=== PATIENT | female | born 1995 | race Caucasian/White ===

== ENCOUNTER 2024-01-11 16:54 | Inpatient (IN) | payer OTHER, SELFPAY ==
[2024-01-11] VITALS (20 sets, daily range): BP systolic 109–139; BP diastolic 58–87; PULSE 66–104; BMI 42.0
--- NOTE | 2024-01-11 17:20 | LDADM ---
This patient, Aline Marcus, was admitted to Labor/Delivery/Recovery 108 on 01/11/24 at 16:54. Plans for labor, pain management and were discussed with patient. Patient/family oriented to hospital policies and general routines including ID bracelet, bed and alarms, visiting hours, pain management, procedures, bathroom and other care routines, personal items, smoking policy, room service/diet and guest tray routines, infant security routines, and visiting hours. Patient/Family are encouraged to report perceived risks to care and to ask questions if they do not understand what they are told or what they should do. See OBIX for further documentation.
--- NOTE | 2024-01-11 17:29 | P.PNAN_ITS ---
Anes - Eval Pre Procedure Procedure: labor epidural Date/Time: 01/11/24 17:29 Pre Op Diagnosis: IOL Patient Data Age: 28 Gender: F Height: 1.75 m Weight: 129 kg Last Vital Signs Pulse 95 01/11/24 17:17 BP 129/59 L 01/11/24 17:17 O2 Del Method Room Air 01/11/24 17:18 Allergies Allergy/AdvReac Type Severity Reaction Status Date / Time No Known Allergies Allergy Verified 01/11/24 17:14 Home Medications Medication Instructions Recorded Confirmed Type buspirone 10 mg tablet 20 mg PO BID 12/27/23 12/27/23 History fluoxetine 20 mg capsule 80 mg PO DAILY 12/27/23 12/27/23 History hydroxyzine HCl 10 mg tablet 10 mg PRN Anxiety 12/27/23 History insulin NPH isoph U-100 human 100 8 unit subcut DAILY 12/27/23 01/11/24 History unit/mL subcutaneous suspension (Humulin N NPH U-100 Insulin (isophane susp)) levothyroxine 100 mcg tablet 100 mcg PO DAILY 12/27/23 12/27/23 History prenat.vits,jacqueline,[id number]-[id number] 1 tablet 12/27/23 History Patient hx anesthesia problems: none Family hx anesthesia problems: none Results Review: All pre-operative results and documents have been reviewed as part of the pre- operative evaluation. [facility] Past Medical History Medical History (Updated 01/11/24 @ 17:30 by Ariela Shah CRNA) Anxiety and depression Eczema Hypothyroid Morbid obesity Family History Family History Mother Hypothyroidism Depression Sibling Hypothyroidism Depression Sibling Hypothyroidism Social History Social History Smoking status: Never smoker Substance use: never Do You Feel Safe in your Home?: Yes Lack of Transportation: No Lack of Food: Never True Current Housing: I Have Housing Concerned About Future Housing: No Difficulty Paying Gas/Electric Bills: No Difficulty Paying for Meds: No Currently Unemployed: No Education: Bachelor's Degree Difficulty w/ Childcare or Family Care: No Spiritual care concerns: No Exam Day of Procedure 01/11/24 17:29 Patient weight: morbidly obese Heart: regular rate and rhythm Lungs: normal air movement Airway: Mallampati scale Neurological: alert and oriented
[2024-01-11 17:38] LABS: Basophils Percent Auto 0.4 % (0.2-1.2); Eosinophils Absolute Auto 0.2 K/mm3 (0-0.3); Eosinophils Percent Auto 1.8 % (0-4.4); Hematocrit 39.5 % (37.0-47.0); Hemoglobin 13.2 g/dL (12.0-15.0); Immature Granulocyte Absolute 0.03 K/mm3 (0.00-0.031); Immature Granulocyte Percent A 0.3 % (0-0.5); Immature Platelet Fraction Pct 17.8 % (0.9-11.2); Lymphocytes Absolute Auto 1.31 K/mm3 (0.9-3.2); Lymphocytes Percent Auto 12.1 % (18.3-44.2); Mean Corpuscular HGB Conc 33.4 g/dl (32-36); Mean Corpuscular Hemoglobin 27.7 pg (26-34); Mean Corpuscular Volume 82.8 fl (80-100); Mean Platelet Volume 13.8 fl (7.4-10.4); Monocytes Absolute Auto 0.4 K/mm3 (0.1-0.6); Neutrophils Absolute Auto 8.8 K/mm3 (1.3-6.7); Neutrophils Percent Auto 81.4 % (45.5-73.1); Platelet Count Result 193 k/mm3 (150-375); Red Blood Count 4.77 M/mm3 (4.2-5.4); Red Cell Distribution Width 14.3 % (11.5-14.5); White Blood Count 10.8 K/mm3 (4.5-10.0)
[2024-01-11] MEDS: miSOPROStol 25 MCG TABLET BUCCAL (17:51)
[2024-01-11 18:32] LABS: HIV 1/2 Ab P24 Ag Result Negative (Negative)
[2024-01-11 18:57] LABS: Alanine Aminotransferase 13 U/L (6-35); Albumin Level 3.6 g/dL (3.5-5.1); Alkaline Phosphatase 131 U/L (38-126); Anion Gap 10 mmol/L (4-12); Aspartate Amino Transferase 20 U/L (14-36); Bilirubin,Total 0.5 mg/dL (0.2-1.3); Blood Urea Nitrogen 6 mg/dL (7-17); Calcium 8.5 mg/dL (8.4-10.2); Carbon Dioxide 21 mmol/L (22-30); Chloride 102 mmol/L (98-107); Estimated CRCL calculation 146 ml/min; Estimated Glomerular Filt Rate > 60; Glucose 127 mg/dL (65-110); Potassium 3.6 mmol/L (3.4-5.0); Sodium 133 mmol/L (137-145)
[2024-01-11] MEDS: busPIRone HCL 10 MG TABLET 20 MG PO (21:11)
[2024-01-11] MEDS: hydrOXYzine HCL 10 MG TABLET PO (21:11)
[2024-01-11] MEDS: FLUoxetine HCL 20 MG CAPSULE 80 MG PO (21:12)
[2024-01-11 21:18] LABS: Glucose Point of Care 141 mg/dl (65-105)
[2024-01-11] MEDS: miSOPROStol 25 MCG TABLET 50 MCG BUCCAL (21:56)
[2024-01-11] MEDS: INSULIN HUMAN NPH (*BKC) 100 UNITS/ML 8 UNITS SUB-Q (22:57)
[2024-01-11] MEDS: LACTATED RINGERS 1,000 ML 125 ML IV CONT (23:44)
[2024-01-11] MEDS: AMPICILLIN 2 GM/NS 100 ML 2 GM/100 ML BAG IVPB (23:44)
[2024-01-12] VITALS (312 sets, daily range): BP systolic 99–157; BP diastolic 58–92; PULSE 55–137; TEMP 36.1–37.1; O2SAT 70–100
[2024-01-12] MEDS: AMPICILLIN 1 GM/NS 50 ML 1 GM/50 ML BAG IVPB ×5 (03:43→19:41)
[2024-01-12] MEDS: miSOPROStol 25 MCG TABLET BUCCAL (04:50)
[2024-01-12] MEDS: fentaNYL CITRATE INJ (*CRX) 100 MCG/2 ML VIAL IV PUSH ×3 (05:23→23:09)
[2024-01-12 05:52] LABS: Glucose Point of Care 94 mg/dl (65-105)
--- NOTE | 2024-01-12 07:49 | WPDOBADMIT ---
Obstetrics - Admit Note Admission Note: record reviewed. No pertinent additions to the history and/or any subsequent changes in the physical findings that are not consistent with the expected course of the were found. Additions to the history and/or subsequent changes in the physical findings follow. Admit for IOL, GDMA-2,, AROM small amount of clear fluid, IUPC placed, anticipate vaginal delivery
[2024-01-12] MEDS: LACTATED RINGERS 1,000 ML 125 ML IV CONT ×2 (09:15→17:12)
[2024-01-12 09:20] LABS: Glucose Point of Care 105 mg/dl (65-105)
[2024-01-12] MEDS: OXYTOCIN 30 UNITS/NS 500 ML 30 UNITS/500 ML BAG IV CONT (10:36)
[2024-01-12 11:46] LABS: Glucose Point of Care 107 mg/dl (65-105)
[2024-01-12 11:56] LABS: Rapid Plasma Reagin Non-Reactive (NonReactive)
[2024-01-12 14:43] LABS: Glucose Point of Care 93 mg/dl (65-105)
[2024-01-12 15:59] LABS: Glucose Point of Care 85 mg/dl (65-105)
[2024-01-12 17:45] LABS: Glucose Point of Care 96 mg/dl (65-105)
[2024-01-12 19:40] LABS: Glucose Point of Care 88 mg/dl (65-105)
[2024-01-12] MEDS: ONDANSETRON INJ 4 MG/2 ML VIAL IV PUSH (21:50)
[2024-01-12 21:52] LABS: Glucose Point of Care 85 mg/dl (65-105)
[2024-01-12] MEDS: OXYTOCIN 10 UNITS/ML VIAL 20 UNITS (22:59)
[2024-01-12] MEDS: OXYTOCIN 30 UNITS/NS 500 ML 30 UNITS/500 ML BAG 999 UNITS IV CONT (23:15)
--- NOTE | 2024-01-12 23:31 | PM.OBPRVD ---
OB - Vaginal Delivery Note Procedure Delivery date: 01/12/24 Events: Gestational Diabetes (GDMA-2) Induction method: AROM, Per Misoprostol Protocol and Per Pitocin Protocol Delivery monitor: External FHT and Internal Uterine Route of delivery: Episiotomy description: None Laceration Description: Perineal - 2nd Degree Delivery repair: vicryl Specimen: Yes Quantitative Blood Loss (ml): 1,450 Anesthesia type: Epidural Disposition: Floor Complications: No immediate complications Narrative: after placenta delivered, fundus boggy and unresponsive, IV access lost and code ob called, URSULA placed, urine catheter placed, laceration repaired and hemostasis achieved [place] Baby Weeks of gestation at delivery: 39
[2024-01-12 23:40] LABS: Basophils Absolute Auto 0.1 K/mm3 (0.0-0.1); Basophils Percent Auto 0.3 % (0.2-1.2); Eosinophils Absolute Auto 0.1 K/mm3 (0-0.3); Eosinophils Percent Auto 0.3 % (0-4.4); Hematocrit 38.2 % (37.0-47.0); Hemoglobin 12.4 g/dL (12.0-15.0); Immature Granulocyte Absolute 0.11 K/mm3 (0.00-0.031); Immature Granulocyte Percent A 0.6 % (0-0.5); Lymphocytes Absolute Auto 0.96 K/mm3 (0.9-3.2); Mean Corpuscular HGB Conc 32.5 g/dl (32-36); Mean Corpuscular Hemoglobin 27.7 pg (26-34); Mean Corpuscular Volume 85.3 fl (80-100); Mean Platelet Volume 13.6 fl (7.4-10.4); Monocytes Absolute Auto 0.8 K/mm3 (0.1-0.6); Monocytes Percent Auto 4.3 % (2.6-8.5); Neutrophils Absolute Auto 17.1 K/mm3 (1.3-6.7); Neutrophils Percent Auto 89.5 % (45.5-73.1); Platelet Count Result 204 k/mm3 (150-375); Red Blood Count 4.48 M/mm3 (4.2-5.4); Red Cell Distribution Width 14.1 % (11.5-14.5); White Blood Count 19.1 K/mm3 (4.5-10.0)
[2024-01-12 23:43] LABS: INR 1.1; Prothrombin Time 14.7 Seconds (11.1-14.7)
[2024-01-12 23:44] LABS: Fibrinogen 532 mg/dl (215-510); Partial Thromboplastin Time 21.7 Seconds (22.3-36.8)
[2024-01-12 23:48] LABS: Albumin Level 3.5 g/dL (3.5-5.1); Alkaline Phosphatase 127 U/L (38-126); Anion Gap 17 mmol/L (4-12); Aspartate Amino Transferase 26 U/L (14-36); Bilirubin,Total 0.8 mg/dL (0.2-1.3); Blood Urea Nitrogen 6 mg/dL (7-17); Calcium 8.6 mg/dL (8.4-10.2); Carbon Dioxide 11 mmol/L (22-30); Chloride 103 mmol/L (98-107); Estimated CRCL calculation 129 ml/min; Estimated Glomerular Filt Rate > 60; Glucose 148 mg/dL (65-110); Sodium 131 mmol/L (137-145)
[2024-01-12] MEDS: OXYTOCIN 30 UNITS/NS 500 ML 30 UNITS/500 ML BAG 125 UNITS IV CONT (23:50)
[2024-01-12] MEDS: AMPICILLIN 2 GM/NS 100 ML 2 GM/100 ML BAG 100 GM (23:50)
[2024-01-12 23:55] LABS: D Dimer 15.52 ug/mL (<0.48)
[2024-01-13] VITALS (47 sets, daily range): BP systolic 116–161; BP diastolic 46–131; PULSE 78–226; RESP 16–18; TEMP 36.7–36.9; O2SAT 97–100
[2024-01-13 00:14] LABS: Alanine Aminotransferase 22 U/L (6-35)
[2024-01-13] MEDS: IBUPROFEN 600 MG TABLET PO ×3 (00:30→17:21)
--- NOTE | 2024-01-13 03:10 | OBPPTRN ---
Patient transferred to post room #287 via wheelchair @ 0310. Support person present. Oriented to unit, room, information board, rooming in, admission packet and security measures. Patient verbalizes understanding.
--- NOTE | 2024-01-13 03:10 | OBPPTRN ---
Patient transferred to post room # via ( ). Support person present. Oriented to unit, room, information board, rooming in, admission packet and security measures. Patient verbalizes understanding.
[2024-01-13 05:16] LABS: Hemoglobin 9.2 g/dL (12.0-15.0)
--- NOTE | 2024-01-13 08:32 | PM.OBPNVD ---
OB - PN: Subj Subjective Date/time seen: 01/13/24 08:32 Patient comments: no complaints, pain well controlled, incisional pain, tolerating diet and flatus present OB - PN: Obj Data Labs 01/13/24 04:36 01/12/24 23:27 Labs: Laboratory Results - last 24 hr 01/11/24 01/12/24 01/12/24 18:16 09:15 11:39 WBC RBC Hgb Hct MCV MCH MCHC RDW Plt Count MPV Immature Gran % (Auto) Neut % (Auto) Lymph % (Auto) [place] % (Auto) Eos % (Auto) Baso % (Auto) Lymph # (Auto) [place] # (Auto) Eos # (Auto) Baso # (Auto) Abs Immat Gran (auto) Absolute Neuts (auto) Absolute Nucleated RBC Nucleated RBC % PT INR APTT Fibrinogen D-Dimer Sodium Potassium Chloride Carbon Dioxide Anion Gap BUN Creatinine Estim Creat Clear Calc Estimated GFR Glucose POC Capillary Glucose 105 107 H Calcium Total Bilirubin AST ALT Alkaline Phosphatase Total Protein Albumin RPR Non-reactive 01/12/24 01/12/24 01/12/24 13:32 15:53 17:42 WBC RBC Hgb Hct MCV MCH MCHC RDW Plt Count MPV Immature Gran % (Auto) Neut % (Auto) Lymph % (Auto) [place] % (Auto) Eos % (Auto) Baso % (Auto) Lymph # (Auto) [place] # (Auto) Eos # (Auto) Baso # (Auto) Abs Immat Gran (auto) Absolute Neuts (auto) Absolute Nucleated RBC Nucleated RBC % PT INR APTT Fibrinogen D-Dimer Sodium Potassium Chloride Carbon Dioxide Anion Gap BUN Creatinine Estim Creat Clear Calc Estimated GFR Glucose POC Capillary Glucose 93 85 96 Calcium Total Bilirubin AST ALT Alkaline Phosphatase Total Protein Albumin RPR 01/12/24 01/12/24 01/12/24 19:34 21:47 23:27 WBC 19.1 H RBC 4.48 Hgb 12.4 Hct 38.2 MCV 85.3 MCH 27.7 MCHC 32.5 RDW 14.1 Plt Count 204 MPV 13.6 H Immature Gran % (Auto) 0.6 H Neut % (Auto) 89.5 H Lymph % (Auto) 5.0 L [place] % (Auto) 4.3 Eos % (Auto) 0.3 Baso % (Auto) 0.3 Lymph # (Auto) 0.96 [place] # (Auto) 0.8 H Eos # (Auto) 0.1 Baso # (Auto) 0.1 Abs Immat Gran (auto) 0.11 H Absolute Neuts (auto) 17.1 H Absolute Nucleated RBC 0.000 Nucleated RBC % 0.0 PT 14.7 INR 1.1 APTT 21.7 L Fibrinogen 532 H D-Dimer 15.52 H Sodium 131 L Potassium 4.0 Chloride 103 Carbon Dioxide 11 L Anion Gap 17 H BUN 6 L Creatinine 0.80 Estim Creat Clear Calc 129 Estimated GFR > 60 Glucose 148 H POC Capillary Glucose 88 85 Calcium 8.6 Total Bilirubin 0.8 AST 26 ALT 22 Alkaline Phosphatase 127 H Total Protein 6.0 L Albumin 3.5 RPR 01/13/24 04:36 WBC RBC Hgb 9.2 L D Hct 28.0 L MCV MCH MCHC RDW Plt Count MPV Immature Gran % (Auto) Neut % (Auto) Lymph % (Auto) [place] % (Auto) Eos % (Auto) Baso % (Auto) Lymph # (Auto) [place] # (Auto) Eos # (Auto) Baso # (Auto) Abs Immat Gran (auto) Absolute Neuts (auto) Absolute Nucleated RBC Nucleated RBC % PT INR APTT Fibrinogen D-Dimer Sodium Potassium Chloride Carbon Dioxide Anion Gap BUN Creatinine Estim Creat Clear Calc Estimated GFR Glucose POC Capillary Glucose Calcium Total Bilirubin AST ALT Alkaline Phosphatase Total Protein Albumin RPR OB - PN A/P Plan day: 1 Plan: routine care Comments: No problems, routine care, carlos removed - no problems Time Spent With Patient Time: Total time spent is greater than 50% in coordination of care (as documented) at patient's floor/unit and/or counseling patient: Exam Const: General: comfortable, no acute distress and alert Resp: Effort & Inspection: normal respiratory effort Auscultation: no crackles, no
[2024-01-13] MEDS: POLYSACCHARIDE IRON COMPLEX 150 MG CAPSULE PO ×2 (11:21→17:21)
[2024-01-13] MEDS: DOCUSATE SODIUM 100 MG CAPSULE PO ×2 (11:22→17:20)
[2024-01-13] MEDS: MULTIVIT/MIN/PREN/FOL AC/IRON TABLET 1 TAB PO (11:22)
[2024-01-13] MEDS: busPIRone HCL 10 MG TABLET 20 MG PO ×2 (11:22→17:20)
[2024-01-13] MEDS: TETANUS,DIPHTHERIA,AC PERTUSSIS ADULT (0.5 ML) BOOSTRIX IM (11:22)
--- NOTE | 2024-01-13 12:00 | PC.NURSE ---
Patient has not desired to put to breast today. She had a hemorrhage and had been feeling very tired. Primary RN has offered resources and patient has declined at this time. Patient is aware that if she wants to put baby to breast she can call out on the call light for assistance at any time. Patient agrees with this plan of action.
[2024-01-13] MEDS: FLUoxetine HCL 20 MG CAPSULE 80 MG PO (21:10)
[2024-01-13] MEDS: hydrOXYzine HCL 10 MG TABLET PO (21:10)
[2024-01-13] MEDS: LEVOTHYROXINE SODIUM 100 MCG TABLET PO (21:10)
--- NOTE | 2024-01-14 07:40 | PM.OBPNVD ---
OB - PN: Subj Subjective Date/time seen: 01/14/24 07:40 Interval history: pp day 2 breast and bottle feeding doing well plan d/c home OB - PN: Obj Data Labs 01/13/24 04:36 01/12/24 23:27 OB - PN A/P Plan day: 2 Plan: routine care and discharge home Time Spent With Patient Time: Total time spent is greater than 50% in coordination of care (as documented) at patient's floor/unit and/or counseling patient: Review of Systems Review of Systems: All systems reviewed & are unremarkable except as noted in HPI and below Exam Const: General: cooperative and healthy appearing Chest: Chest palpation & inspection: normal inspection of the chest Resp: Effort & Inspection: normal respiratory effort Cardio: Rate: regular rate Rhythm: regular rhythm Skin: General skin exam: normal color Neuro: General: patient oriented x3
--- NOTE | 2024-01-14 07:42 | PM.OBDSVD ---
DS: Admitting Diagnosis Discharge Date 01/14/24 Admitting Diagnosis IOL, GDMA-2 DS: Discharge Diagnosis Discharge Diagnosis (1) Vaginal delivery: Code(s): O80 - Encounter for full-term uncomplicated delivery Status: Acute (2) hemorrhage: Code(s): O72.1 - Other immediate hemorrhage Status: Acute OB - DS: Summary OB Procedures : None OB Procedures Intrapartum: Spontaneous Vag Delivery OB Procedures: : None Peripartum Data Laceration Description: Perineal - 2nd Degree Episiotomy description: None Time Spent with Patient Time attestation: Total time spent providing and/or coordinating discharge services: DS: Data Data Completed and Pending Pending studies at discharge: Pending at discharge 01/13/24 01:33 Surgical [PTH] Routine Discharge Plan Discharge Attending physician on discharge: Luis Antonio Vazquez Discharging Clinician: Megan Soto Patient Disposition: Home, Self-Care Activity: pelvic rest Diet: regular Patient Instructions: Antibiotic Form Stand Alone Forms: General Discharge Information Follow-up/Referrals: Megan Soto CNM [Certified Nurse Supervisor [employer]] - 4 Weeks Discharge Medications: New ibuprofen 600 mg Tablet 600 mg PO Q6H PRN (Reason: Cramping) Qty: 30 0RF polysaccharide iron complex 150 mg iron Capsule 150 mg PO BIDWM Qty: 60 0RF Continued levothyroxine 100 mcg Tablet 100 mcg PO DAILY buspirone 10 mg Tablet 20 mg PO BID fluoxetine 20 mg Capsule 80 mg PO DAILY #2 Tablet 1 tablet DAILY hydroxyzine HCl 10 mg Tablet 10 mg PO PRN PRN (Reason: Anxiety) Discontinued Humulin N NPH U-100 Insulin 100 unit/mL Suspension 8 unit SUBCUT DAILY Date of admission: 01/11/24 16:54 Primary Care Provider: ImanLita Admitting Provider: Luis Antonio Vazquez Attending physician on admission: Luis Antonio Vazquez Condition: Stable
[2024-01-14 08:15] VITALS: BP 122/70; PULSE 107; RESP 16; TEMP 37.2; O2SAT 100
[2024-01-14] MEDS: MULTIVIT/MIN/PREN/FOL AC/IRON TABLET 1 TAB PO (08:58)
[2024-01-14] MEDS: POLYSACCHARIDE IRON COMPLEX 150 MG CAPSULE PO (08:59)
[2024-01-14] MEDS: IBUPROFEN 600 MG TABLET PO (08:59)
[2024-01-14] MEDS: DOCUSATE SODIUM 100 MG CAPSULE PO (08:59)
[2024-01-14] MEDS: busPIRone HCL 10 MG TABLET 20 MG PO (08:59)
[2024-01-15 10:26] VITALS: BP 117/66; PULSE 84; RESP 18; TEMP 36.7; O2SAT 100
== END 2024-01-14 15:15 | disposition home or self-care (01) | DRG 806 ==
LOC: ANHLDR 17:00 → ANHOB2 01-13 05:30
PROVIDERS: Advanced Practice Midwife; Admitting Provider Obstetrics & Gynecology; PCP Family Medicine; Visit Provider Obstetrics & Gynecology
DX: O24.429 Gestational diabetes mellitus in childbirth, unspecified control (principal); O72.1 Other immediate postpartum hemorrhage; Z37.0 Single live birth; Z3A.39 39 weeks gestation of pregnancy; O70.1 Second degree perineal laceration during delivery
CPT/HCPCS: 36415; 80053; 82948; 85014; 85018; 85025; 85055; 85380; 85384; 85610; 85730; 86592; 86703; 86850; 86900; 86901; 88307; 90715; A9270; G0432; J0290; J1815; J2405; J2590; J2795; J3010; J7120

== ENCOUNTER 2024-01-15 10:24 | Outpatient (CLI) | payer OTHER, SELFPAY ==
[2024-01-15] VITALS (74 sets, daily range): BP systolic 71–124; BP diastolic 44–74; PULSE 73–186; RESP 18–26; TEMP 37.1–37.9; O2SAT 92–100
[2024-01-15 10:54] LABS: Basophils Absolute Auto 0.1 K/mm3 (0.0-0.1); Basophils Percent Auto 0.4 % (0.2-1.2); Eosinophils Absolute Auto 0.3 K/mm3 (0-0.3); Eosinophils Percent Auto 2.7 % (0-4.4); Hematocrit 24.3 % (37.0-47.0); Hemoglobin 7.6 g/dL (12.0-15.0); Immature Granulocyte Absolute 0.19 K/mm3 (0.00-0.031); Immature Granulocyte Percent A 1.6 % (0-0.5); Immature Platelet Fraction Pct 14.4 % (0.9-11.2); Lymphocytes Absolute Auto 1.52 K/mm3 (0.9-3.2); Lymphocytes Percent Auto 12.6 % (18.3-44.2); Mean Corpuscular HGB Conc 31.3 g/dl (32-36); Mean Corpuscular Hemoglobin 27.4 pg (26-34); Mean Corpuscular Volume 87.7 fl (80-100); Mean Platelet Volume 12.9 fl (7.4-10.4); Monocytes Absolute Auto 0.6 K/mm3 (0.1-0.6); Monocytes Percent Auto 5.1 % (2.6-8.5); Neutrophils Absolute Auto 9.4 K/mm3 (1.3-6.7); Neutrophils Percent Auto 77.6 % (45.5-73.1); Platelet Count Result 178 k/mm3 (150-375); Red Blood Count 2.77 M/mm3 (4.2-5.4); White Blood Count 12.1 K/mm3 (4.5-10.0)
--- NOTE | 2024-01-15 11:25 | PC.NURSE ---
110--Phone call to Dr. Vazquez to report lab results and v.s. Orders to transfuse 2u PRBC's.
[2024-01-15] MEDS: SODIUM CHLORIDE 0.9% IV 250 ML 30 ML IV CONT (13:00)
[2024-01-15] MEDS: TUBING, BLOOD PLUM PUMP TUBING 1 EACH XX (13:00)
--- NOTE | 2024-01-15 17:40 | PC.NURSE ---
Called to patient room to discuss with parents. Mother is crying and upset because she is feeling pressure from family. They feel that she should be successfully. Mother had a very significant hemorrhage and is receiving 2 units of blood today. She has been attempting to breastfeed or pumping at half of baby's feedings. He receives formula at the other feedings. Mother states that she can express colostrum. She has a wearable pump at home. We discussed expectations for milk production in relation to her large blood loss. We also discussed perhaps renting a pump that would be more effective to stimulate her breasts than the wearable pump. We talked about needing to power pump because she has such a risk for low milk supply. Football seems to be the easiest position for her to breastfeed but she struggles to feel that it is comfortable. Suggested she try a rolled up washcloth under her breast to help lift and support. Also encouraged warmth and massage to her breast before and during pumping. Advised that she do these things when she feels able, since she has been so tired and weak after her hemorrhage. Patient is open to coming next week for an appointment so that we can assist with positioning and latch, as well as discuss how to move forward with stimulating a greater milk supply if possible. Encouraged mom to continue attempting and pumping until we see her next week and that every drop baby gets is beneficial. She is very open to calling the office to make an appointment early next week. She is feeling more encouraged and positive after we discussed our plan moving forward. She has the office phone number and she will call to make an appointment at her convenience.
--- NOTE | 2024-01-15 18:19 | PC.NURSE ---
181--IV DC'd, education to pt. re: S&Sx to report r/t anemia. Pt. verbalizes understanding. She states she wants to nurse her baby before leaving. Encouraged pt. to let one of the staff know when she is ready to leave. Pt. verbalizes understanding.
== END 2024-01-15 18:39 ==
LOC: ANHOBOP 10:34 → ANHOBPP 10:34
PROVIDERS: PCP Family Medicine; Visit Provider Obstetrics & Gynecology
DX: D64.9 Anemia, unspecified (principal)
CPT/HCPCS: 36415; 36430; 85025; 85055; 86850; 86900; 86901; 86923; 99199; J7050; P9016

== ENCOUNTER 2025-05-23 13:00 | Outpatient (RCR) | payer OTHER, SELFPAY ==
[2025-05-02 18:10] VITALS: BP 116/66; PULSE 79
--- NOTE | ~2025-05-23 | US_ITS ---
US OB BPP wo non-stress INDICATION: GDM . COMPARISON: None. TECHNIQUE: Transabdominal limited obstetric sonogram and biophysical profile were performed. TRANSABDOMINAL LIMITED OBSTETRIC SONOGRAM: There is a live single intrauterine with a vertex lie, frontal placenta, and DIPAK of 6.18 cm. heart motion at a rate of 125 bpm is documented. BPP: The biophysical profile score, assessing breathing movement, gross body movement, tone and qualitative amniotic fluid volume is 8/8. IMPRESSION: Single live intrauterine in vertex presentation with heart tones measuring 125 bpm. Biophysical profile score 8/8. Reviewed, dictated and finalized at location S. [facility] TECHNICAL IMPRESSION: Single live intrauterine in vertex presentation with heart tone s measuring 125 bpm. Biophysical profile score 8/8.
--- NOTE | ~2025-05-23 | US_ITS ---
EXAMINATION: US OB BPP wo non-stress DATE: 05/23/2025 15:13 TALENT REP INDICATION: Decreased movements TECHNIQUE: Real-time transabdominal obstetric ultrasound. FINDINGS: No prior studies for comparison. There is a single living fetus in vertex presentation. The placenta is posterior without placenta previa. cardiac activity and movement is noted with a heart rate of 132 beats per minute. Biophysical profile: breathin of 2 movement: 2 of 2 tone: 2 of 2 Amniotic flud pocket: 2 of 2 Total score: 8 of 8 DIPAK is normal measuring 8.4 cm. IMPRESSION: 1. Single living intrauterine in vertex presentation. 2: Total biophysical profile score of 8/8. Reviewed, dictated and finalized at location I. NT REP
[2025-05-23 15:21] VITALS: BP 116/66; PULSE 79
== END 2025-06-09 11:45 | disposition other institution (70) ==
LOC: ANHOBOP 13:00
PROVIDERS: PCP Family Medicine; Visit Provider Advanced Practice Midwife
DX: O24.419 Gestational diabetes mellitus in pregnancy, unspecified control (principal); Z3A.34 34 weeks gestation of pregnancy
CPT/HCPCS: 59025; 76819

== ENCOUNTER 2025-05-30 23:02 | Inpatient (IN) | payer OTHER, SELFPAY ==
[2025-05-30] VITALS (8 sets, daily range): BP systolic 114–121; BP diastolic 63–74; PULSE 68–84; O2SAT 94–99
[2025-05-31] VITALS (254 sets, daily range): BP systolic 76–141; BP diastolic 37–115; PULSE 63–152; RESP 16; TEMP 36.6–36.8; O2SAT 91–100; BMI 43.9
[2025-05-31] MEDS: LACTATED RINGERS 1,000 ML 125 ML IV CONT ×3 (00:15→06:25)
[2025-05-31 00:18] LABS: Alanine Aminotransferase 13 U/L (6-35); Albumin Level 3.8 g/dL (3.5-5.1); Alkaline Phosphatase 160 U/L (38-126); Anion Gap 6 mmol/L (4-12); Aspartate Amino Transferase 23 U/L (14-36); Bilirubin,Total 0.4 mg/dL (0.2-1.3); Blood Urea Nitrogen 11 mg/dL (7-17); Calcium 8.2 mg/dL (8.4-10.2); Carbon Dioxide 17 mmol/L (22-30); Chloride 108 mmol/L (98-107); Estimated Glomerular Filt Rate > 60; Glucose 96 mg/dL (65-110); Potassium 3.9 mmol/L (3.4-5.0); Sodium 131 mmol/L (137-145); Total Protein 7.3 g/dL (6.3-8.2)
[2025-05-31 00:28] LABS: Hematocrit 37.3 % (37.0-47.0); Hemoglobin 11.9 g/dL (12.0-15.0); Immature Granulocyte Percent A 1.0 % (0-0.5); Lymphocytes Absolute Auto 1.68 K/mm3 (0.9-3.2); Mean Corpuscular HGB Conc 31.9 g/dl (32-36); Mean Corpuscular Hemoglobin 26.5 pg (26-34); Mean Corpuscular Volume 83.1 fl (80-100); Nucleated Red Blood Cells Absolute Auto 0.000 K/mm3 (0.0-0.012); Nucleated Red Blood Cells Perc 0.0 % (0.0-0.2); Platelet Count Result 224 k/mm3 (150-375); Red Blood Count 4.49 M/mm3 (4.2-5.4); White Blood Count 11.8 K/mm3 (4.5-10.0)
[2025-05-31] MEDS: AMPICILLIN SODIUM 2 GM in SODIUM CHLORIDE 0.9% IV 100 ML 200 ML IVPB (00:43)
--- NOTE | 2025-05-31 00:48 | P.PNAN_ITS ---
Anes - Initial Pre Proc Eval Procedure: labor epidural Date/Time: 05/31/25 00:48 Surgeon: Luis Antonio Vazquez MD Pre Op Diagnosis: labor pain Pre Op Diagnosis: Contractions Patient Data Age: 29 Gender: F Height: 1.75 m Weight: 135 kg Last Vital Signs Pulse 75 05/31/25 00:46 BP 133/54 L 05/31/25 00:46 Pulse Ox 100 05/31/25 00:44 O2 Del Method Room Air 05/31/25 00:45 Allergies Allergy/AdvReac Type Severity Reaction Status Date / Time No Known Allergies Allergy Verified 05/02/25 16:49 Home Medications ?Medication ?Instructions ?Recorded ?Confirmed ?Type buspirone 10 mg tablet 20 mg PO BID 12/27/23 History fluoxetine 20 mg capsule 80 mg PO DAILY 12/27/2305/21 History hydroxyzine HCl 10 mg tablet 10 mg PO PRN PRN Anxiety 12/27/23 05/30/25 History levothyroxine 100 mcg tablet 100 mcg PO DAILY 12/27/23 05/30/25 History prenat.vits,jacqueline,vvm-[id number]-gsdgp 1 tablet PO DAILY 12/2605/30/25 History insulin NPH isoph U-100 human 100 26 unit subcut QPM 1 07/02/24 History unit/mL subcutaneous suspension (Humulin N NPH U-100 Insulin (isophane susp)) Laboratory Tests 05/30/25 05/31/25 23:55 00:00 WBC 11.8 H K/mm3 (4.5-10.0) RBC 4.49 M/mm3 (4.2-5.4) Hgb 11.9 L D g/dL (12.0-15.0) Hct 37.3 % (37.0-47.0) MCV 83.1 fl (80-100) MCH 26.5 pg (26-34) MCHC 31.9 L g/dl (32-36) RDW 13.9 % (11.5-14.5) Plt Count 224 k/mm3 (150-375) MPV 12.6 H fl (7.4-10.4) Immature Gran % (Auto) 1.0 H % (0-0.5) Neut % (Auto) 75.3 H % (45.5-73.1) Lymph % (Auto) 14.2 L % (18.3-44.2) [place] % (Auto) 6.3 % (2.6-8.5) Eos % (Auto) 2.8 % (0-4.4) Baso % (Auto) 0.4 % (0.2-1.2) Lymph # (Auto) 1.68 K/mm3 (0.9-3.2) [place] # (Auto) 0.7 H K/mm3 (0.1-0.6) Eos # (Auto) 0.3 K/mm3 (0-0.3) Baso # (Auto) 0.1 K/mm3 (0.0-0.1) Abs Immat Gran (auto) 0.12 H K/mm3 (0.00-0.031) Absolute Neuts (auto) 8.9 H K/mm3 (1.3-6.7) Absolute Nucleated RBC 0.000 K/mm3 (0.0-0.012) Nucleated RBC % 0.0 % (0.0-0.2) Sodium 131 L mmol/L (137-145) Potassium 3.9 mmol/L (3.4-5.0) Chloride 108 H mmol/L (98-107) Carbon Dioxide 17 L mmol/L (22-30) Anion Gap 6 mmol/L (4-12) BUN 11 D mg/dL (7-17) Creatinine 0.70 mg/dL (0.7-1.0) Estim Creat Clear Calc Not Reportable Estimated GFR > 60 (59 - ) Glucose 96 mg/dL (65-110) Calcium 8.2 L mg/dL (8.4-10.2) Total Bilirubin 0.4 mg/dL (0.2-1.3) AST 23 U/L (14-36) ALT 13 U/L (6-35) Alkaline Phosphatase 160 H U/L (38-126) Total Protein 7.3 g/dL (6.3-8.2) Albumin 3.8 g/dL (3.5-5.1) Patient hx anesthesia problems: none Family hx anesthesia problems: none Results Review: All pre-operative results and documents have been reviewed as part of the pre- operative evaluation. COUNTS INCLUDE 234 BEDS AT THE [facility] Past Medical History Medical History (Updated 01/14/24 @ 07:42 by Megan Soto CNM) Anxiety and depression Eczema Hypothyroid Morbid obesity Family History Family History Mother Hypothyroidism Depression Sibling Hypothyroidism Depression Sibling Hypothyroidism Social History Social History Smoking status: Never smoker Substance use: never Lack of Transportation: No Lack of Food: Never True Current Housing: I Have Housing Concerned About Future Housing: No Difficulty Paying Gas/Electric Bills: No Difficulty Paying for Meds: No Currently Unemployed: No Education: Bachelor's Degree Difficulty w/ Childcare or Family Care: No Spiritual care concerns: No Anes - Eval Final PreProcedure Day of Procedure 05/31/25 00:48 Heart: regular rate and rhythm Lungs: clear to auscultation and normal air movement Airway: Mallampati scale class II Neurological: alert and oriented ASA classification: III Anesthetic plan: proceed Anesthesia type and monitoring: regional epidural Results Review: All pre-operative results and documents have been reviewed as part of the pre- operative evaluation. Informed Consent: The patient's anesthetic plan and its attendant risks and benefits were discussed with the patient/family/POA. Questions were solicited and answers provided to the satisfaction of the patient/family/POA.
[2025-05-31] MEDS: INSULIN GLARGINE (*BKC) 100 UNITS/ML 26 UNITS SUB-Q (01:10)
[2025-05-31 02:09] LABS: Syphilis IgG/IgM Antibody Non-Reactive (Nonreactive)
[2025-05-31] MEDS: AMPICILLIN SODIUM 1 GM in SODIUM CHLORIDE 0.9% IV 50 ML 100 ML IVPB ×2 (04:43→08:44)
--- NOTE | 2025-05-31 04:52 | PM.OBPRVD ---
OB - Vaginal Delivery Note Procedure Delivery date: 05/31/25 Delivery monitor: External FHT and External Uterine Route of delivery: Episiotomy description: None Laceration Description: Perineal - 2nd Degree and Labial Delivery repair: vicryl Specimen: No Quantitative Blood Loss (ml): 400 Anesthesia type: Epidural Disposition: Floor Complications: No immediate complications
--- NOTE | 2025-05-31 09:14 | WPDOBADMIT ---
Obstetrics - Admit Note Admission Note: record reviewed. No pertinent additions to the history and/or any subsequent changes in the physical findings that are not consistent with the expected course of the were found. Patient admitted in labor, SVE /-2; AROM of clear fluid. FHR category I. complicated by GDMA2, on insulin. Anticipate . Additions to the history and/or subsequent changes in the physical findings follow. None.
[2025-05-31] MEDS: OXYTOCIN 30 UNITS/NS 500 ML 30 UNITS/500 ML BAG 999 UNITS IV CONT (10:39)
[2025-05-31] MEDS: OXYTOCIN 30 UNITS/NS 500 ML 30 UNITS/500 ML BAG 125 UNITS IV CONT (11:06)
--- NOTE | 2025-05-31 11:20 | PM.OBPRVD ---
OB - Vaginal Delivery Note Procedure Delivery date: 05/31/25 Events: Gestational Diabetes (A2) Delivery augmentation: Rupture of Membranes Delivery monitor: External FHT and External Uterine Route of delivery: Episiotomy description: None Laceration Description: Perineal - 2nd Degree Delivery repair: vicryl Specimen: No Quantitative Blood Loss (ml): 100 Anesthesia type: Epidural Disposition: Floor Complications: No immediate complications Narrative: See H&P and notes for details on patient's admission and labor. She progressed to complete cervical dilation and at the appropriate time began pushing. With adequate expulsive efforts by the mother, the baby's head was delivered without difficulty. Nuchal cord was not present. The baby's left shoulder was anterior and delivered under the pubic symphysis without difficulty. The posterior shoulder and the rest of the baby delivered without difficulty. The umbilical cord was doubly clamped and cut after 60 seconds of delayed cord clamping. Care of the was then assumed by the nursing staff. Baby Date of : 05/31/25 Gestational Age by Date: 39 Infant gender: Male Weight (pounds): 6 Weight (ounces): 8 presentation: vertex position: Left Occiput Anterior Placenta delivery description: Expressed Cord Vessel Description: 3 Vessels and Delayed Cord Clamping
--- NOTE | 2025-05-31 14:47 | OBPPTRN ---
Patient transferred to post room #283 via wheelchair. Support person present. Oriented to unit, room, information board, rooming in, admission packet and security measures. Patient verbalizes understanding.
--- NOTE | 2025-05-31 15:50 | PC.NURSE ---
Consulted with patient to assess needs related to . Discussed with mother her successes, concerns and any questions she has. Per mother, infant needed help latching with first feeding and then Primary RN was able to help latch with this feeding and did 10 minutes on her right breast. We reviewed working with the infant, supporting breast, protecting her nipples with an optimal deep latch, good positioning, and good hand washing. Encouraged understanding the benefits of skin to skin, responding to feeding cues, frequencies of feeding 8-12 times in 24 hours (approximately 2-3 hours), duration of feedings, milk production, intake/output feeding sheet and signs of adequate intake encouraging swallowing at the breast. Reviewed positioning and alignment, supporting breast, off-centered (asymmetrical latch) and leading with the chin with big, open, wide gape. Infant attempted to latch to the [left] breast in [football] position but was not successful, mother had already been trying for 10 minutes, she was going to try for another 5 and then supplement with formula. Education given to the mother of how to visualize the suckling (with good rocking jaw motion) swallows (dropping of the lower jaw) and how to listen for drinking at the breast (the ka sound). Nipple care reviewed with optimal latch, good positioning and using clean hands when touching her breast. Resources used to facilitate learning were used from the [visual handouts/ tool/mom and baby guide]. Mother voiced understanding of the education shared, to call for assistance if the infant does not latch or if there is discomfort with . Reported to the Primary RN.
--- NOTE | 2025-05-31 19:16 | PC.NURSE ---
1830.Nipple shield provided to mother due to a tongue sucker. Reviewed good handwashing, cleaning the nipple shield and the appropriate way to apply and use as a tool. Discussed with mom the nipple shield precautions, possible complications associated with the risks and benefits. Reviewed practicing with a nipple shield, then without and how to protect the milk supply and production. Mom and baby guide referred to as a resource for outpatient services, community resources and when to call a provider. Mom voiced understanding of the importance of hand expression, nipple stimulation and initiating a pumping schedule if continues to nurse with the shield. Reported to the Primary RN.
[2025-06-01 04:50] LABS: Hematocrit 32.7 % (37.0-47.0); Hemoglobin 10.3 g/dL (12.0-15.0)
[2025-06-01] MEDS: LEVOTHYROXINE SODIUM 100 MCG TABLET PO (05:30)
[2025-06-01 05:31] VITALS: BP 125/74; PULSE 75; RESP 18; TEMP 36.7; O2SAT 100
[2025-06-01] MEDS: IBUPROFEN 600 MG TABLET PO ×3 (05:46→22:13)
[2025-06-01] MEDS: ACETAMINOPHEN 325 MG TABLET 650 MG PO ×3 (05:47→22:13)
[2025-06-01 08:45] VITALS: BP 121/76; PULSE 72; RESP 16; TEMP 36.5; O2SAT 100
[2025-06-01] MEDS: MULTIVIT/MIN/PREN/FOL AC/IRON TABLET 1 TAB PO (09:07)
[2025-06-01] MEDS: DOCUSATE SODIUM 100 MG CAPSULE PO ×2 (09:07→16:37)
--- NOTE | 2025-06-01 10:38 | WPDANLDPN2 ---
Anes-Prog Note L&D Date/Time: 06/01/25 10:38 Comfortable throughout: labor and delivery Neuraxial method: epidural Epidural/Spinal procedure site: clean & non-tender Neuro status: Neuro function grossly intact. Cardiovascular status: normal Respiratory status: normal Airway patency: baseline Mental status: baseline Post-Op hydration status: normal Vital Signs: Last Vital Signs Temp 36.5 C 06/01/25 08:45 Pulse 72 06/01/25 08:45 Resp 16 06/01/25 08:45 BP 121/76 06/01/25 08:45 Pulse Ox 100 06/01/25 08:45 O2 Del Method Room Air 05/31/25 19:18 Pain score (VAS): 1 Post-procedural complaints: none Patient feedback: Patient satisfied with anesthetic care.
--- NOTE | 2025-06-01 12:50 | PC.NURSE ---
Consulted with mother concerning needs and she shared her ability to independently latch infant optimally without pain and that she has been using a nipple shield since last night. Discussed now starting to pump due to nipple shield use to protect her milk supply, her is going home to get her pump since she is familiar with that model. Encouraged mother to use the pump after each feeding where the nipple shield is used and that she shield should be weaned and used as a tool. is also receiving formula supplement. Mother also does take Flexeril for back pain, according to [facility] Medications and Mother's Milk the drug is probably compatible with , she should monitor if becomes more sleepy and be careful when taking the medication so that she is not holding the infant while feeding, FOB also aware and states, I will feed the baby or take care of him if she takes that medication. Mother is feeding appropriately for growth of and understands stimulating infant to eat if needed. has had appropriate feedings in the last 24 hours meets the outcomes for weight, output, blood sugar and jaundice at this time. Reinforced understanding of milk production, transition of milk, signs of adequate intake, transition of stool, prevention/relief of engorgement, plugged ducts, mastitis, responsive watching for feeding cues, the different methods of stimulating to breastfeed 1-3 hours after the start of the last feeding, community resources, and when to call a provider using the resource of the feeding sheet along with the mom and baby guide. Mother voiced understanding of the information shared, is confident to continue effectively her infant at home, when to call for assistance, denies any additional assistance or education at this time. Reported to the Primary RN.
--- NOTE | 2025-06-01 15:55 | P.PNOB_ITS ---
OB - PN: Subj Subjective Date/time seen: 06/01/25 15:55 Patient comments: no complaints, pain well controlled, incisional pain, tolerating diet and flatus present OB - PN: Obj Data Labs 06/01/25 04:36 05/31/25 00:00 Labs: Laboratory Results - last 24 hr 06/01/25 04:36 Hgb 10.3 L Hct 32.7 L OB - PN A/P Plan day: 1 Plan: routine care Comments: No problems, routine care Time Spent With Patient Time: Total time spent is greater than 50% in coordination of care (as documented) at patient's floor/unit and/or counseling patient: Exam 2 Const: General: comfortable, no acute distress and alert Resp: Effort & Inspection: normal respiratory effort Auscultation: no crackles, no rales and no rhonchi Cardio: Rate: regular rate Heart sounds: no click, no murmurs and no rubs GI: Inspection: non-distended GI Palp: No Tenderness to palpation present (GI) Auscultation: normal bowel sounds Other: Incision - CDI Extrem: General: normal to inspection, no pedal edema and no calf tenderness
[2025-06-01 19:39] VITALS: BP 117/64; PULSE 81; RESP 18; TEMP 36.8; O2SAT 100
[2025-06-01] MEDS: BISMUTH SUBSALICYLATE 262 MG CHEWABLE TABLET 524 MG PO (20:45)
[2025-06-02] MEDS: BISMUTH SUBSALICYLATE 262 MG CHEWABLE TABLET 524 MG PO (01:49)
[2025-06-02] MEDS: ACETAMINOPHEN 325 MG TABLET 650 MG PO ×2 (04:08→12:46)
[2025-06-02] MEDS: IBUPROFEN 600 MG TABLET PO ×2 (04:08→12:46)
[2025-06-02] MEDS: LEVOTHYROXINE SODIUM 100 MCG TABLET PO (06:45)
[2025-06-02 08:10] VITALS: BP 107/60; PULSE 65; RESP 18; TEMP 36.1; O2SAT 100
[2025-06-02] MEDS: MULTIVIT/MIN/PREN/FOL AC/IRON TABLET 1 TAB PO (08:10)
--- NOTE | 2025-06-02 14:07 | P.PNOB_ITS ---
OB - PN: Subj Subjective Date/time seen: 06/02/25 14:07 Patient comments: no complaints, pain well controlled and tolerating diet OB - PN: Obj Data Labs 06/01/25 04:36 05/31/25 00:00 OB - PN A/P Plan day: 2 Plan: routine care and discharge home Time Spent With Patient Time: Total time spent is greater than 50% in coordination of care (as documented) at patient's floor/unit and/or counseling patient: Exam 2 Const: General: comfortable and no acute distress Resp: Effort & Inspection: normal respiratory effort Auscultation: no rales, no rhonchi and no wheezes Cardio: Rate: regular rate Heart sounds: no click, no murmurs and no rubs GI: GI Palp: Yes Soft to palpation and No Tenderness to palpation present (GI) Auscultation: normal bowel sounds Extrem: General: normal to inspection, no pedal edema and no calf tenderness
--- NOTE | 2025-06-02 14:07 | PM.OBDSVD ---
DS: Admitting Diagnosis Discharge Date 06/02/2025 Admitting Diagnosis Term DS: Discharge Diagnosis Discharge Diagnosis (1) Vaginal delivery: Code(s): O80 - Encounter for full-term uncomplicated delivery Status: Acute OB - DS: Summary OB Procedures : None OB Procedures Intrapartum: Spontaneous Vag Delivery OB Procedures: : None Peripartum Data Laceration Description: Perineal - 2nd Degree Episiotomy description: None Time Spent with Patient Time attestation: Total time spent providing and/or coordinating discharge services: Discharge Plan Discharge Consulting providers: Megan Soto Discharging Clinician: Luis Antonio Vazquez Patient Disposition: Home Activity: pelvic rest Diet: regular Discharge Instructions: Education: Mom and Baby Guide Given to: Mother Follow-Up: Call your delivering provider's office for an appointment to be seen Mom and baby [facility] follow[facility]up appointment. Appointment Date/Time: June 04, 2025 at 11:00 am What to expect at your follow-up visit: Blood Pressure Check Physical Assessment Call [phone] if you are unable to keep your appointment time. BREAST CARE: * Wear a snug supportive bra. * For engorgement discomfort: Breast Feeding: * Apply warm moist washcloths * Express milk as needed to relieve engorgement * Wear loose clothing Bottle Feeding: * May apply ice packs * For sore nipples: * Identify correct latch-on * Apply warm moist washcloths before and after nursing * Air dry nipples after nursing * May apply Lansinoh cream to nipples PERINEAL CARE: * Until bleeding stops, use your maite bottle after urinating * Change your pad frequently throughout the day * You may take sitz baths several times a day (fill your bathtub with warm water and soak for 20 minutes.) Do NOT bathe in the water * No tub baths until seen by your physician - You may shower ACTIVITY: * Rest as much as possible. * Do not exercise or lift anything heavier than your baby (such as laundry or other children.) * Avoid stairs or driving as much as possible. * Do not put anything into the vagina. No douching, tampons, or sexual activity until seen by physician. NOTIFY PHYSICIAN IF YOU HAVE ANY QUESTIONS OR IF ANY OF THE FOLLOWING SYMPTOMS OCCUR: * If your perineum becomes red, swollen, or more painful than what you have experienced in the hospital. * If your vaginal bleeding becomes foul smelling. * If your vaginal bleeding becomes more heavy than a period or if your bleeding changes from pink to bright red. However, you may pass an occasional walnut-sized clot once or twice for the first week . * If you experience a sharp, shooting pain in you calves. * If you discover a hard, reddened area on your breast or if you experience flu-like symptoms. DIET: * Eat regular, well-balanced meals. * Drink plenty of fluids daily. If , drink to thirst. Patient Instructions: Antibiotic Form Patient Language: Indonesian Stand Alone Forms: General Discharge Information Follow-up/Referrals: Luis Antonio Vazquez MD [Physician, [employer]] Discharge Medications: Continued levothyroxine 100 mcg Tablet 100 mcg PO DAILY buspirone 10 mg Tablet 20 mg PO BID fluoxetine 20 mg Capsule 80 mg PO DAILY prenat.vits,jacqueline,[id number] Tablet 1 tablet PO DAILY hydroxyzine HCl 10 mg Tablet 10 mg PO PRN PRN (Reason: Anxiety) Discontinued Humulin N NPH U-100 Insulin 100 unit/mL suspension 26 unit SUBCUT QPM Date of admission: 05/30/25 23:51 Primary Care Provider: ImanLita Admitting Provider: Luis Antonio Vazquez Attending physician on admission: Luis Antonio Vazquez Condition: Stable
[2025-06-02] MEDS: TETANUS,DIPHTHERIA,AC PERTUSSIS ADULT (0.5 ML) BOOSTRIX IM (14:34)
[2025-06-04 11:20] VITALS: BP 116/68; PULSE 87; RESP 18; TEMP 36.6; O2SAT 100
== END 2025-06-02 14:49 | disposition home or self-care (01) | DRG 807 ==
LOC: ANHLDR 23:51 → ANHOB2 05-31 15:34
PROVIDERS: Admitting Provider Obstetrics & Gynecology; PCP Family Medicine; Visit Provider Obstetrics & Gynecology
DX: O99.824 Streptococcus B carrier state complicating childbirth (principal); Z37.0 Single live birth; O70.1 Second degree perineal laceration during delivery; O24.424 Gestational diabetes mellitus in childbirth, insulin controlled; Z3A.39 39 weeks gestation of pregnancy
CPT/HCPCS: 36415; 80053; 82948; 85014; 85018; 85025; 86593; 86850; 86900; 86901; 90715; A9270; J0290; J1815; J2590; J2795; J7120